=== PATIENT | female | born 1965 | race Caucasian/White ===

== ENCOUNTER → 2016-09-03 19:34 | Outpatient (CLI) | payer OTHER ==
[2014-11-30 09:03] VITALS: BMI 35.8
[~2016-09-03 19:34] MED LIST: DEXILANT60 MG PO; HYDROCODONE-APA1 TAB PO
== END | disposition home or self-care (01) ==
LOC: D.MAMMO 08:00
DX: Z12.31 Encounter for screening mammogram for malignant neoplasm of breast (principal)

== ENCOUNTER → 2016-11-04 18:57 | Outpatient (CLI) | payer OTHER ==
[2014-11-30 09:03] VITALS: BMI 35.8
[2016-11-04 20:21] LABS: APPEARANCE CLEAR (CLEAR); BILIRUBIN NEGATIVE (NEGATIVE); COLOR YELLOW (YELLOW); GLUCOSE NEGATIVE (NEGATIVE); KETONE NEGATIVE (NEGATIVE); LEUKOCYTE ESTERASE NEGATIVE (NEGATIVE); NITRITE NEGATIVE (NEGATIVE); PROTEIN NEGATIVE (NEGATIVE); UROBILINOGEN NORMAL (NORMAL)
== END | disposition home or self-care (01) ==
LOC: D.LABREF 18:57
PROVIDERS: Urology
DX: R31.9 Hematuria, unspecified (principal); N39.0 Urinary tract infection, site not specified

== ENCOUNTER → 2018-02-08 14:50 | Outpatient (CLI) | payer OTHER ==
[2014-11-30 09:03] VITALS: BMI 35.8
== END | disposition home or self-care (01) ==
LOC: D.US 14:50
DX: N93.8 Other specified abnormal uterine and vaginal bleeding (principal); Z12.31 Encounter for screening mammogram for malignant neoplasm of breast

== ENCOUNTER → 2018-02-24 18:09 | Outpatient (CLI) | payer OTHER ==
[2014-11-30 09:03] VITALS: BMI 35.8
== END | disposition home or self-care (01) ==
LOC: D.MAMMO 16:00
DX: Z12.31 Encounter for screening mammogram for malignant neoplasm of breast (principal)